=== PATIENT | female | born 1985 | race Caucasian/White ===

== ENCOUNTER 2025-05-10 21:10 | Emergency (ER) | payer BC ==
[~2025-05-10] VITALS: Ht 167.6 cm; Wt 77.1 kg
[2025-05-10 21:59] VITALS: BP 122/71; TEMP 98.5; O2SAT 98
== END 2025-05-10 21:59 ==
LOC: ER 21:15
DX: O71.4 Obstetric high vaginal laceration alone (principal); N93.0 Postcoital and contact bleeding; M79.7 Fibromyalgia; Z91.048 Other nonmedicinal substance allergy status; Z60.2 Problems related to living alone
CPT/HCPCS: 99284; A6403